=== PATIENT | female | born 1990 | race Caucasian/White ===

== ENCOUNTER 2017-10-09 18:36 | Inpatient (IN) ==
[2017-10-09] MEDS ORDERED: methylPREDNISolone SOD SUC 125 MG/2 ML VIAL IV STA (19:43)
[2017-10-09] MEDS ORDERED: cefTRIAXone 1,000 MG in SODIUM CHLORIDE 0.9% 100 ML IV STA (19:43)
[2017-10-09] MEDS ORDERED: SODIUM CHLORIDE 0.9% 500 ML IV STA (19:43)
[2017-10-09] MEDS ORDERED: ALBUTEROL/IPRATROPIUM 3 ML NEB RESP TX STA (19:43)
[2017-10-09] MEDS ORDERED: methylPREDNISolone SOD SUC 125 MG/2 ML VIAL ONE (20:17)
[2017-10-09] MEDS ORDERED: cefTRIAXone 1,000 MG VIAL ONE (20:17)
[2017-10-09 20:18] LABS: Basophils % 0.1 % (0.0-0.8); Hematocrit 39.4 VOL% (35.7-47.0); Hemoglobin 13.9 GM/DL (12.0-16.0); Immature Granulocytes % 0.5 %; Immature Granulocytes Absolute 0.05 #; Lymphocytes # 0.9 10*3/uL (1.4-4.0); Lymphocytes % 8.8 % (21.3-54.2); Mean Corpuscular HGB Conc 35.3 GM/DL (32-36); Mean Corpuscular Hemoglobin 31 PG (27-34); Mean Corpuscular Volume 86.4 FL (87-102); Mean Platelet Volume 10.8 FL (9.6-12.0); Monocytes # 0.2 10*3/uL (0.11-0.8); Monocytes % 1.8 % (1.7-12.7); Neutrophils # 9.4 10*3/uL (1.4-7.4); Neutrophils % 88.8 % (38.7-73.9); Platelet Count 285 T/CUMM (130-400); Red Blood Count 4.56 MC/CUMM (3.8-5.5); Red Cell Distribution Width 12.5 % (9.3-17.3); White Blood Count 10.5 T/CUMM (4-12)
[2017-10-09 20:50] LABS: Alanine Aminotransferase 27 U/L (13-56); Albumin 4.6 G/DL (3.4-5.0); Alkaline Phosphatase 61 U/L (45-117); Aspartate Amino Transferase 27 U/L (0-37); Blood Urea Nitrogen 11 MG/DL (7-18); Glucose 180 MG/DL (74-106); Osmolality,Calculated 280.5 MOS/KG (273-304); Potassium 3.7 MMOL/L (3.5-5.1); Sodium 139 MMOL/L (136-145); Troponin I Only < 0.015 NG/ML (0.00-0.045)
[2017-10-09 20:55] LABS: ABG Base Excess -4.3 MMOL/L (-2.5-2.5); ABG HCO3 20.9 MMOL/L (20-26); ABG Oxygen Saturation 99.2 % (95-100); ABG PH 7.544 (7.35-7.45); ABG TCO2 14.1 MMOL/L (23-27); Allen Test Positive
[2017-10-09 20:59] LABS: ABG PCO2 18.7 MM HG (35-48)
[2017-10-09 21:54] LABS: Apearance,Urine Slightly Hazy (Clear); Bacteria,Urine Occasional /HPF (Few); Bilirubin,Urine Negative (Negative); Blood, Urine Negative (Negative); Glucose,Urine (UA) >=500 mg/dL (Negative); Ketones,Urine 5 mg/dL (Negative); Mucus,Urine Occasional /LPF (Occasional); Nitrite,Urine Negative (Negative); Protein,Urine Negative; RBC,Urine 1 /HPF (0-4); Squamous Epithelial Cell,Urine Occasional /HPF (0-10); Urine Color Yellow (Yellow); Urine Specific Gravity 1.024 (1.001-1.035); Urine Urobilinogen < 2.0 EU/DL (0.2-1.0); WBC,Urine <1 /HPF (0-6)
[2017-10-09] MEDS ORDERED: ACETAMINOPHEN 325 MG TABLET PO PRN (22:43)
[2017-10-09] MEDS ORDERED: ONDANSETRON 4 MG/2 ML VIAL IV PRN (22:43)
[2017-10-10] MEDS: SERTRALINE 50 MG TABLET PO SCH ×2 (00:09→20:36)
[2017-10-10] MEDS: MONTELUKAST 10 MG TABLET PO SCH ×2 (00:09→20:36)
[2017-10-10] MEDS: ALBUTEROL 2.5 MG/3 ML NEB RESP TX SCH ×5 (00:34→19:52)
[2017-10-10] MEDS ORDERED: methylPREDNISolone SOD SUC 125 MG/2 ML VIAL IV SCH ×2 (04:00→14:00)
[2017-10-10 05:16] LABS: Basophils % 0.1 % (0.0-0.8); Hematocrit 33.5 VOL% (35.7-47.0); Hemoglobin 11.3 GM/DL (12.0-16.0); Immature Granulocytes % 0.9 %; Immature Granulocytes Absolute 0.13 #; Lymphocytes # 0.8 10*3/uL (1.4-4.0); Lymphocytes % 5.4 % (21.3-54.2); Mean Corpuscular HGB Conc 33.7 GM/DL (32-36); Mean Corpuscular Hemoglobin 30 PG (27-34); Mean Corpuscular Volume 89.3 FL (87-102); Mean Platelet Volume 10.8 FL (9.6-12.0); Monocytes # 0.2 10*3/uL (0.11-0.8); Monocytes % 1.5 % (1.7-12.7); Neutrophils % 92.1 % (38.7-73.9); Platelet Count 214 T/CUMM (130-400); Red Blood Count 3.75 MC/CUMM (3.8-5.5); Red Cell Distribution Width 12.5 % (9.3-17.3); White Blood Count 14.1 T/CUMM (4-12)
[2017-10-10 05:37] LABS: Band Neutrophils 1 % (0-10); Giant Platelets Few; Hypochromasia 1+; Lymphocytes 5 % (20-55); Microcytosis Slight; Ovalocytes Slight; Platelet Estimate Adequate; Segmented Neutrophils 94 % (50-85); Total Cells Counted 100
[2017-10-10 05:49] LABS: Osmolality,Calculated 284.1 MOS/KG (273-304)
[2017-10-10] MEDS: BUDESONIDE/FORMOTEROL 160-4.5 INHALER 6 GM INH SCH ×2 (09:53→20:36)
[2017-10-10] MEDS: methylPREDNISolone SOD SUC 40 MG/1 ML VIAL IV SCH ×3 (09:53→21:26)
[2017-10-10] MEDS: PANTOPRAZOLE 40 MG TABLET PO SCH (09:54)
[2017-10-10] MEDS: ZALEPLON 5 MG CAPSULE PO PRN (21:31)
[2017-10-11] MEDS: ALBUTEROL 2.5 MG/3 ML NEB RESP TX SCH ×7 (00:04→23:34)
[2017-10-11] MEDS: methylPREDNISolone SOD SUC 40 MG/1 ML VIAL IV SCH ×5 (04:18→21:21)
[2017-10-11] MEDS: PANTOPRAZOLE 40 MG TABLET PO SCH (08:26)
[2017-10-11] MEDS: BUDESONIDE/FORMOTEROL 160-4.5 INHALER 6 GM INH SCH ×2 (08:29→21:21)
[2017-10-11] MEDS: ALPRAZolam 0.5 MG TABLET PO PRN ×2 (08:30→16:18)
[2017-10-11] MEDS: MONTELUKAST 10 MG TABLET PO SCH (21:21)
[2017-10-11] MEDS: SERTRALINE 50 MG TABLET PO SCH (21:21)
[2017-10-11] MEDS: ZALEPLON 5 MG CAPSULE PO PRN (23:27)
[2017-10-12] MEDS: methylPREDNISolone SOD SUC 40 MG/1 ML VIAL IV SCH ×4 (03:09→21:04)
[2017-10-12] MEDS: ALBUTEROL 2.5 MG/3 ML NEB RESP TX SCH ×6 (03:29→23:15)
[2017-10-12 07:21] LABS: Hematocrit 34.2 VOL% (35.7-47.0); Hemoglobin 11.5 GM/DL (12.0-16.0); Immature Granulocytes % 1.5 %; Lymphocytes # 0.9 10*3/uL (1.4-4.0); Lymphocytes % 4.3 % (21.3-54.2); Mean Corpuscular HGB Conc 33.6 GM/DL (32-36); Mean Corpuscular Hemoglobin 30 PG (27-34); Mean Corpuscular Volume 88.6 FL (87-102); Mean Platelet Volume 11.3 FL (9.6-12.0); Monocytes # 0.5 10*3/uL (0.11-0.8); Monocytes % 2.2 % (1.7-12.7); Platelet Count 248 T/CUMM (130-400); Red Blood Count 3.86 MC/CUMM (3.8-5.5); Red Cell Distribution Width 12.7 % (9.3-17.3); White Blood Count 20.7 T/CUMM (4-12)
[2017-10-12 07:40] LABS: Calcium 8.8 MG/DL (8.5-10.1); Osmolality,Calculated 284.3 MOS/KG (273-304); Potassium 4.4 MMOL/L (3.5-5.1)
[2017-10-12] MEDS: ALPRAZolam 0.5 MG TABLET PO PRN ×2 (08:06→16:30)
[2017-10-12] MEDS: PANTOPRAZOLE 40 MG TABLET PO SCH (08:06)
[2017-10-12] MEDS: BUDESONIDE/FORMOTEROL 160-4.5 INHALER 6 GM INH SCH ×2 (08:07→21:24)
[2017-10-12 08:12] LABS: Giant Platelets Few; Hypochromasia 1+; Lymphocytes 6 % (20-55); Microcytosis Slight; Ovalocytes Slight; Platelet Estimate Adequate; Segmented Neutrophils 93 % (50-85); Total Cells Counted 100
[2017-10-12] MEDS: LEVOFLOXACIN INJ 500 MG in PREMIX 1 EACH IV SCH (09:30)
[2017-10-12] MEDS: THEOPHYLLINE ER (24 HR) 400 MG TABLET PO SCH (09:31)
[2017-10-12] MEDS: MONTELUKAST 10 MG TABLET PO SCH (21:04)
[2017-10-12] MEDS: SERTRALINE 50 MG TABLET PO SCH (21:04)
[2017-10-12] MEDS: ZALEPLON 5 MG CAPSULE PO PRN (23:46)
[2017-10-13] MEDS: ALBUTEROL 2.5 MG/3 ML NEB RESP TX SCH ×6 (02:51→23:15)
[2017-10-13] MEDS: methylPREDNISolone SOD SUC 40 MG/1 ML VIAL IV SCH ×4 (04:50→21:23)
[2017-10-13] MEDS: BUDESONIDE/FORMOTEROL 160-4.5 INHALER 6 GM INH SCH ×2 (09:26→21:22)
[2017-10-13] MEDS: PANTOPRAZOLE 40 MG TABLET PO SCH (09:26)
[2017-10-13] MEDS: THEOPHYLLINE ER (24 HR) 400 MG TABLET PO SCH (09:26)
[2017-10-13] MEDS: LEVOFLOXACIN INJ 500 MG in PREMIX 1 EACH IV SCH (09:29)
[2017-10-13] MEDS: ALPRAZolam 0.5 MG TABLET PO PRN ×2 (09:29→15:26)
[2017-10-13] MEDS: SERTRALINE 50 MG TABLET PO SCH (21:22)
[2017-10-13] MEDS: MONTELUKAST 10 MG TABLET PO SCH (21:22)
[2017-10-13] MEDS: ZALEPLON 5 MG CAPSULE PO PRN (23:08)
[2017-10-14] MEDS: ALBUTEROL 2.5 MG/3 ML NEB RESP TX SCH ×6 (03:40→23:12)
[2017-10-14] MEDS: ALPRAZolam 0.5 MG TABLET PO PRN ×3 (03:59→20:59)
[2017-10-14] MEDS: methylPREDNISolone SOD SUC 40 MG/1 ML VIAL IV SCH ×4 (04:00→21:00)
[2017-10-14 06:04] LABS: Basophils % 0.2 % (0.0-0.8); Hematocrit 37.7 VOL% (35.7-47.0); Hemoglobin 12.9 GM/DL (12.0-16.0); Immature Granulocytes % 2.9 %; Immature Granulocytes Absolute 0.52 #; Lymphocytes # 0.9 10*3/uL (1.4-4.0); Lymphocytes % 5.2 % (21.3-54.2); Mean Corpuscular HGB Conc 34.2 GM/DL (32-36); Mean Corpuscular Hemoglobin 30 PG (27-34); Mean Corpuscular Volume 86.7 FL (87-102); Mean Platelet Volume 11.2 FL (9.6-12.0); Monocytes # 0.8 10*3/uL (0.11-0.8); Monocytes % 4.6 % (1.7-12.7); Neutrophils # 15.5 10*3/uL (1.4-7.4); Neutrophils % 87.1 % (38.7-73.9); Platelet Count 274 T/CUMM (130-400); Red Blood Count 4.35 MC/CUMM (3.8-5.5); Red Cell Distribution Width 12.3 % (9.3-17.3); White Blood Count 17.8 T/CUMM (4-12)
[2017-10-14 06:35] LABS: Band Neutrophils 1 % (0-10); Hypochromasia 1+; Lymphocytes 7 % (20-55); Platelet Estimate Adequate; Segmented Neutrophils 88 % (50-85); Total Cells Counted 100
[2017-10-14] MEDS: BUDESONIDE/FORMOTEROL 160-4.5 INHALER 6 GM INH SCH ×2 (08:33→21:04)
[2017-10-14] MEDS: THEOPHYLLINE ER (24 HR) 400 MG TABLET PO SCH (08:34)
[2017-10-14] MEDS: LEVOFLOXACIN INJ 500 MG in PREMIX 1 EACH IV SCH (08:34)
[2017-10-14] MEDS: PANTOPRAZOLE 40 MG TABLET PO SCH (08:34)
[2017-10-14] MEDS: SERTRALINE 50 MG TABLET PO SCH (20:59)
[2017-10-14] MEDS: MONTELUKAST 10 MG TABLET PO SCH (20:59)
[2017-10-14] MEDS: ZALEPLON 5 MG CAPSULE PO PRN (22:54)
[2017-10-15] MEDS: ALBUTEROL 2.5 MG/3 ML NEB RESP TX SCH ×6 (03:01→23:05)
[2017-10-15] MEDS: methylPREDNISolone SOD SUC 40 MG/1 ML VIAL IV SCH ×3 (03:19→21:39)
[2017-10-15] MEDS: ALPRAZolam 0.5 MG TABLET PO PRN ×3 (08:05→21:39)
[2017-10-15] MEDS: PANTOPRAZOLE 40 MG TABLET PO SCH (08:05)
[2017-10-15] MEDS: THEOPHYLLINE ER (24 HR) 400 MG TABLET PO SCH (08:05)
[2017-10-15] MEDS: LEVOFLOXACIN INJ 500 MG in PREMIX 1 EACH IV SCH ×2 (08:06→09:15)
[2017-10-15] MEDS: BUDESONIDE/FORMOTEROL 160-4.5 INHALER 6 GM INH SCH ×2 (08:06→20:27)
[2017-10-15 09:51] LABS: ABG Base Excess 2.3 MMOL/L (-2.5-2.5); ABG HCO3 24.2 MMOL/L (20-26); ABG Oxygen Saturation 98.7 % (95-100); ABG PCO2 29.5 MM HG (35-48); ABG PH 7.531 (7.35-7.45); ABG PO2 142.6 MM HG (80-95); ABG TCO2 25.1 MMOL/L (23-27)
[2017-10-15] MEDS: MONTELUKAST 10 MG TABLET PO SCH (20:27)
[2017-10-15] MEDS: SERTRALINE 50 MG TABLET PO SCH (20:27)
[2017-10-15] MEDS: ZALEPLON 5 MG CAPSULE PO PRN (21:39)
[2017-10-16] MEDS: ALBUTEROL 2.5 MG/3 ML NEB RESP TX SCH ×6 (03:12→22:47)
[2017-10-16] MEDS: ALPRAZolam 0.5 MG TABLET PO PRN (08:59)
[2017-10-16] MEDS: PANTOPRAZOLE 40 MG TABLET PO SCH (09:00)
[2017-10-16] MEDS: THEOPHYLLINE ER (24 HR) 400 MG TABLET PO SCH (09:00)
[2017-10-16] MEDS: methylPREDNISolone SOD SUC 40 MG/1 ML VIAL IV SCH (09:01)
[2017-10-16] MEDS: LEVOFLOXACIN INJ 500 MG in PREMIX 1 EACH IV SCH (09:02)
[2017-10-16] MEDS: BUDESONIDE/FORMOTEROL 160-4.5 INHALER 6 GM INH SCH ×2 (09:18→21:31)
[2017-10-16] MEDS: SERTRALINE 50 MG TABLET PO SCH (21:31)
[2017-10-16] MEDS: MONTELUKAST 10 MG TABLET PO SCH (21:31)
[2017-10-16] MEDS: ZALEPLON 5 MG CAPSULE PO PRN (23:22)
[2017-10-17] MEDS: ALBUTEROL 2.5 MG/3 ML NEB RESP TX SCH ×4 (02:44→14:40)
[2017-10-17 05:58] LABS: Basophils % 0.2 % (0.0-0.8); Eosinophils # 0.1 10*3/uL (0.0-0.87); Eosinophils % 0.7 % (0.00-10.9); Hematocrit 40.3 VOL% (35.7-47.0); Hemoglobin 13.5 GM/DL (12.0-16.0); Immature Granulocytes % 4.2 %; Immature Granulocytes Absolute 0.54 #; Lymphocytes # 3.4 10*3/uL (1.4-4.0); Lymphocytes % 26.8 % (21.3-54.2); Mean Corpuscular HGB Conc 33.5 GM/DL (32-36); Mean Corpuscular Hemoglobin 30 PG (27-34); Mean Platelet Volume 10.8 FL (9.6-12.0); Monocytes # 1.4 10*3/uL (0.11-0.8); Monocytes % 11.2 % (1.7-12.7); Neutrophils # 7.3 10*3/uL (1.4-7.4); Neutrophils % 56.9 % (38.7-73.9); Platelet Count 221 T/CUMM (130-400); Red Blood Count 4.58 MC/CUMM (3.8-5.5); Red Cell Distribution Width 12.6 % (9.3-17.3); White Blood Count 12.9 T/CUMM (4-12)
[2017-10-17 06:30] LABS: Albumin 3.5 G/DL (3.4-5.0); Bilirubin,Total 0.6 MG/DL (0.2-1.0); Calcium 8.4 MG/DL (8.5-10.1); Eosinophils 1 % (0-10); Lymphocytes 32 % (20-55); Metamyelocytes 1 %; Osmolality,Calculated 275.8 MOS/KG (273-304); Segmented Neutrophils 58 % (50-85); Total Cells Counted 100; Total Protein 6.1 G/DL (6.4-8.3)
[2017-10-17 06:31] LABS: Hypochromasia 1+; Microcytosis 1+; Platelet Estimate Normal
[2017-10-17] MEDS ORDERED: predniSONE 20 MG TABLET PO SCH (09:00)
[2017-10-17] MEDS: BUDESONIDE/FORMOTEROL 160-4.5 INHALER 6 GM INH SCH (09:42)
[2017-10-17] MEDS: PANTOPRAZOLE 40 MG TABLET PO SCH (09:42)
[2017-10-17] MEDS: LEVOFLOXACIN INJ 500 MG in PREMIX 1 EACH IV SCH (09:42)
[2017-10-17] MEDS ORDERED: diphenhydrAMINE 50 MG/1 ML VIAL IV ONE (11:06)
[2017-10-17] MEDS: ALPRAZolam 0.5 MG TABLET PO PRN (11:12)
[2017-10-17 12:39] VITALS: BP 103/61
== END 2017-10-17 16:12 | disposition home or self-care (01) | DRG 203 ==
LOC: N.EDINP 18:36 → N.ED 18:36 → N.5E 23:22 → SUATTDRO 10-10 11:06
PROVIDERS: ATTEND Internal Medicine

== ENCOUNTER 2021-11-18 16:23 | Inpatient (IN) ==
[2021-11-17] MEDS: LACTATED RINGERS 1,000 ML IV SCH ×2 (14:50→20:15)
[2021-11-17] MEDS: ACETAMINOPHEN 325 MG TABLET PO PRN (18:15)
[2021-11-17] MEDS: SUMAtriptan 25 MG TABLET PO PRN ×3 (21:06→23:46)
[2021-11-18] MEDS: ONDANSETRON 4 MG/2 ML VIAL IV PRN ×5 (01:01→23:30)
[2021-11-18] MEDS: LACTATED RINGERS 1,000 ML IV SCH ×4 (02:22→22:36)
[2021-11-18] MEDS: ACETAMINOPHEN 325 MG TABLET PO PRN ×3 (03:55→16:12)
[2021-11-18] MEDS: SUMAtriptan 25 MG TABLET PO PRN ×3 (07:32→21:36)
[~2021-11-18 16:23] MED LIST: MEPERIDINE 50 MG/1 ML VIAL IM ONE; ONDANSETRON 4 MG/2 ML VIAL IV ONE; PROMETHAZINE 25 MG/1 ML VIAL IM ONE
[2021-11-19] MEDS: LACTATED RINGERS 1,000 ML IV SCH ×3 (04:46→17:49)
[2021-11-19] MEDS: ACETAMINOPHEN 325 MG TABLET PO PRN (06:09)
[2021-11-19] MEDS: ONDANSETRON 4 MG/2 ML VIAL IV PRN (06:09)
[2021-11-19 08:46] LABS: Bacteria,Urine Occasional /HPF (Few); RBC,Urine <1 /HPF (0-4); Squamous Epithelial Cell,Urine Occasional /HPF (0-10)
[2021-11-19 08:47] LABS: Bilirubin,Urine Negative (Negative); Blood, Urine Negative (Negative); Glucose,Urine (UA) Negative (Negative); Ketones,Urine Negative (Negative); Nitrite,Urine Negative (Negative); Protein,Urine Negative (Negative); Urine Appearance Clear (Clear); Urine Color Yellow (Yellow); Urine Urobilinogen 0.2 eU/dL (<2.0)
[2021-11-19 08:49] LABS: Basophils % 0.3 % (0.0-0.8); Eosinophils # 0.1 10*3/uL (0.0-0.87); Eosinophils % 1.7 % (0.00-10.9); Hematocrit 32.3 VOL% (35.7-47.0); Hemoglobin 10.8 GM/DL (12.0-16.0); Immature Granulocytes % 0.5 %; Immature Granulocytes Absolute 0.03 #; Lymphocytes # 1.2 10*3/uL (1.4-4.0); Lymphocytes % 19.7 % (21.3-54.2); Mean Corpuscular HGB Conc 33.4 GM/DL (32-36); Mean Corpuscular Volume 88.7 FL (87-102); Mean Platelet Volume 10.1 FL (9.6-12.0); Monocytes % 4.6 % (1.7-12.7); Neutrophils % 73.2 % (38.7-73.9); Platelet Count 149 T/CUMM (130-400); Red Blood Count 3.64 MC/CUMM (3.8-5.5); Red Cell Distribution Width 12.2 % (9.3-17.3)
[2021-11-19] MEDS: PANTOPRAZOLE 40 MG VIAL IV SCH (08:59)
[2021-11-19 09:04] LABS: Albumin 2.8 G/DL (3.4-5.0); Bilirubin,Total 0.4 MG/DL (0.20-1.00); Calcium 8.9 MG/DL (8.5-10.1); Osmolality,Calculated 275.4 MOS/KG (273-304); Potassium 3.7 MMOL/L (3.5-5.1); Total Protein 5.9 G/DL (6.4-8.2)
[2021-11-19] MEDS ORDERED: MEPERIDINE 50 MG/1 ML VIAL IV PRN (09:05)
[2021-11-19] MEDS ORDERED: PROMETHAZINE 25 MG/1 ML VIAL IM PRN (09:06)
[2021-11-19] MEDS: SUMAtriptan 25 MG TABLET PO PRN (13:17)
[2021-11-19] MEDS ORDERED: BUTALBITAL/ACETAMIN/CAFFEINE 50-325-40 MG TABLET PO ONE (15:31)
[2021-11-19] MEDS ORDERED: methylPREDNISolone SOD SUC 40 MG/1 ML VIAL IV ONE (15:42)
[2021-11-19] MEDS ORDERED: KETOROLAC 30 MG/1 ML VIAL IM PRN (15:46)
[2021-11-20] MEDS: LACTATED RINGERS 1,000 ML IV SCH ×3 (01:42→20:22)
[2021-11-20] MEDS: BUTALBITAL/ACETAMIN/CAFFEINE 50-325-40 MG TABLET PO PRN (05:19)
[2021-11-20 05:29] LABS: Alanine Aminotransferase 41 U/L (13-56); Albumin 2.5 G/DL (3.4-5.0); Alkaline Phosphatase 45 U/L (45-117); Aspartate Amino Transferase 35 U/L (0-37); Bilirubin,Total < 0.39 MG/DL (0.20-1.00); Blood Urea Nitrogen 6 MG/DL (7-18); Calcium 8.2 MG/DL (8.5-10.1); Carbon Dioxide 23 MMOL/L (21-32); Estimated Glom Filtration Rate 123 ML/MIN; Glucose 100 MG/DL (74-106); Osmolality,Calculated 276.4 MOS/KG (273-304); Potassium 4.2 MMOL/L (3.5-5.1); Sodium 140 MMOL/L (136-145); Thyroid Stimulating Hormone 0.499 uIU/ml (0.358-3.74); Total Protein 5.6 G/DL (6.4-8.2)
[2021-11-20] MEDS: PANTOPRAZOLE 40 MG VIAL IV SCH (08:08)
[2021-11-20] MEDS: DOCUSATE SODIUM 100 MG CAPSULE PO PRN (08:11)
[2021-11-20] MEDS: ACETAMINOPHEN 325 MG TABLET PO PRN (13:53)
[2021-11-20] MEDS ORDERED: MAGNESIUM SULF RIDER 2 GM/50 ML PREMIX IV PRN (14:39)
[2021-11-20] MEDS: predniSONE 10 MG TABLET PO SCH (14:54)
[2021-11-20] MEDS: KETOROLAC 30 MG/1 ML VIAL IV PRN (18:12)
[2021-11-21] MEDS ORDERED: ALUMINUM/MAGNES/SIMETH MAX STR 30 ML UDCUP PO PRN (02:59)
[2021-11-21] MEDS: PANTOPRAZOLE 40 MG VIAL IV SCH (08:04)
[2021-11-21] MEDS: predniSONE 10 MG TABLET PO SCH (08:07)
[2021-11-21] MEDS: DOCUSATE SODIUM 100 MG CAPSULE PO PRN (08:07)
[2021-11-21] MEDS: LACTATED RINGERS 1,000 ML IV SCH (11:53)
[2021-11-21] MEDS: ONDANSETRON 4 MG/2 ML VIAL IV PRN (15:34)
[2021-11-21] MEDS: KETOROLAC 30 MG/1 ML VIAL IV PRN (17:35)
[2021-11-21] MEDS: BUTALBITAL/ACETAMIN/CAFFEINE 50-325-40 MG TABLET PO PRN (23:10)
[2021-11-22] MEDS: ONDANSETRON 4 MG/2 ML VIAL IV PRN (06:59)
[2021-11-22 08:43] VITALS: BP 92/62
[2021-11-22] MEDS: predniSONE 10 MG TABLET PO SCH (09:27)
[2021-11-22] MEDS: PANTOPRAZOLE 40 MG VIAL IV SCH (09:38)
[2021-11-22] MEDS: ACETAMINOPHEN 325 MG TABLET PO PRN (09:39)
== END 2021-11-22 10:55 | disposition home or self-care (01) | DRG 833 ==
LOC: N.OB
PROVIDERS: ADMIT Obstetrics & Gynecology; ATTEND Obstetrics & Gynecology

== ENCOUNTER 2022-05-13 06:00 | Inpatient (IN) ==
[2022-05-13] MEDS: LACTATED RINGERS 1,000 ML IV SCH ×4 (06:35→23:15)
[2022-05-13] MEDS ORDERED: MEPERIDINE 50 MG/1 ML VIAL IV PRN (06:43)
[2022-05-13] MEDS ORDERED: METHYLERGONOVINE 0.2 MG/1 ML AMP IM PRN (06:43)
[2022-05-13] MEDS ORDERED: CARBOPROST TROMETHAMINE 250 MCG/ML AMP IM PRN (06:43)
[2022-05-13] MEDS ORDERED: TRANEXAMIC ACID 1,000 MG in SODIUM CHLORIDE 0.9% 100 ML IV PRN (06:43)
[2022-05-13] MEDS ORDERED: BUTORPHANOL 2 MG/ML VIAL IV PRN (06:43)
[2022-05-13] MEDS ORDERED: ONDANSETRON 4 MG/2 ML VIAL IV PRN (06:43)
[2022-05-13] MEDS ORDERED: OXYTOCIN/LR 20 UNIT/1,000 ML BAG IV ONE (06:43)
[2022-05-13] MEDS ORDERED: miSOPROStoL 200 MCG TABLET RECTAL PRN (06:43)
[2022-05-13] MEDS ORDERED: OXYTOCIN/LR 20 UNIT/1,000 ML BAG IV SCH (07:00)
[2022-05-13 07:07] LABS: Basophils % 0.3 % (0.0-0.8); Eosinophils # 0.1 10*3/uL (0.0-0.87); Eosinophils % 1.5 % (0.00-10.9); Hematocrit 35.4 VOL% (35.7-47.0); Hemoglobin 11.7 GM/DL (12.0-16.0); Immature Granulocytes % 0.6 %; Immature Granulocytes Absolute 0.05 #; Lymphocytes # 2.2 10*3/uL (1.4-4.0); Lymphocytes % 27.4 % (21.3-54.2); Mean Corpuscular HGB Conc 33.1 GM/DL (32-36); Mean Corpuscular Volume 88.5 FL (87-102); Mean Platelet Volume 12.2 FL (9.6-12.0); Monocytes # 0.6 10*3/uL (0.11-0.8); Monocytes % 7.3 % (1.7-12.7); Neutrophils % 62.9 % (38.7-73.9); Platelet Count 122 T/CUMM (130-400); Red Cell Distribution Width 13.2 % (9.3-17.3); White Blood Count 7.8 T/CUMM (4-12)
[2022-05-13 07:37] LABS: Albumin 2.4 G/DL (3.4-5.0); Bilirubin,Total 0.4 MG/DL (0.20-1.00); Calcium 8.3 MG/DL (8.5-10.1); Osmolality,Calculated 279.1 MOS/KG (273-304); Potassium 3.9 MMOL/L (3.5-5.1); Total Protein 6.2 G/DL (6.4-8.2)
[2022-05-13] MEDS ORDERED: FAMOTIDINE 20 MG/2 ML VIAL IV ONE ×3 (08:14→20:55)
[2022-05-13] MEDS ORDERED: LACTATED RINGERS 1,000 ML IV ONE (08:14)
[2022-05-13] MEDS ORDERED: NALOXONE 0.4 MG/ML VIAL IV PRN (08:14)
[2022-05-13] MEDS ORDERED: diphenhydrAMINE 50 MG/1 ML VIAL IV PRN ×2 (08:14)
[2022-05-13] MEDS ORDERED: CITRIC ACID/SODIUM CITRATE 30 ML UDCUP PO ONE (08:14)
[2022-05-13] MEDS ORDERED: ALUMINUM/MAGNES/SIMETH MAX STR 30 ML UDCUP PO PRN (08:28)
[2022-05-13] MEDS ORDERED: fentaNYL 2 MCG/ROPIV 0.2% EPID 100 ML EPIDURAL SCH (08:30)
[2022-05-13] MEDS ORDERED: TERBUTALINE 1 MG/1 ML VIAL ONE (17:27)
[2022-05-13] MEDS ORDERED: TERBUTALINE 1 MG/1 ML VIAL SUBCUT ONE ×2 (17:36→20:30)
[2022-05-13] MEDS ORDERED: CITRIC ACID/SODIUM CITRATE 30 ML UDCUP ONE (20:55)
[2022-05-13] MEDS: ePHEDrine 50 MG/ML VIAL IV PRN ×2 (21:30→21:42)
[2022-05-13 22:17] LABS: Bilirubin,Urine Negative (Negative); Glucose,Urine (UA) Negative (Negative); Ketones,Urine 15 mg/dL (Negative); Nitrite,Urine Negative (Negative); Protein,Urine Negative (Negative); Urine Appearance Clear (Clear); Urine Color Yellow (Yellow)
[2022-05-13 22:18] LABS: Blood, Urine Negative (Negative)
[2022-05-13 22:22] LABS: RBC,Urine <1 /HPF (0-4); Squamous Epithelial Cell,Urine Occasional /HPF (0-10)
[2022-05-13] MEDS ORDERED: TERBUTALINE 1 MG/1 ML VIAL SUBCUT PRN (22:30)
[2022-05-14 00:43] LABS: Cord Arterial Blood HCO3 18.1 MMOL/L
[2022-05-14 00:48] LABS: Cord Venous Blood PCO2 45.5 MMHG; Cord Venous Blood PO2 25.7
[2022-05-14] MEDS ORDERED: LANOLIN 50% CREAM 0.3 OZ TUBE TOP PRN (02:49)
[2022-05-14] MEDS ORDERED: HYDROCORTISONE 2.5% RECTAL CREAM 30 GM TUBE TOP PRN (02:49)
[2022-05-14] MEDS ORDERED: MEASLES/MUMPS/RUBELLA VACCINE 0.5 ML VIAL SUBCUT ONE (02:49)
[2022-05-14] MEDS ORDERED: BISACODYL 10 MG SUPP RECTAL PRN (02:49)
[2022-05-14] MEDS ORDERED: OXYTOCIN/LR 20 UNIT/1,000 ML BAG IV ONE (02:49)
[2022-05-14] MEDS ORDERED: RHO(D) IMMUNE GLOBULIN 300 MCG SYRINGE IM ONE (02:49)
[2022-05-14] MEDS ORDERED: ACETAMINOPHEN 325 MG TABLET PO PRN (02:49)
[2022-05-14] MEDS ORDERED: ONDANSETRON 4 MG/2 ML VIAL IV PRN (02:49)
[2022-05-14] MEDS ORDERED: DIPH/TET/ACEL PERT BOOSTER VACCINE 0.5 ML VIAL IM ONE (02:49)
[2022-05-14] MEDS: IBUPROFEN 800 MG TABLET PO PRN ×2 (03:19→20:07)
[2022-05-14] MEDS: WITCH HAZEL PADS 100/JAR TOP PRN ×2 (03:20→21:23)
[2022-05-14] MEDS: BENZOCAINE 20%/MENTHOL 0.5% SPRAY 56 GM CAN TOP PRN ×2 (03:20→21:23)
[2022-05-14] MEDS ORDERED: HydrOXYzine PAMOATE 25 MG CAPSULE PO PRN (03:33)
[2022-05-14] MEDS: oxyCODONE/ACETAMINOPHEN 5-325 MG TABLET PO PRN ×3 (04:30→21:22)
[2022-05-14 05:49] LABS: Basophils % 0.2 % (0.0-0.8); Eosinophils % 0.3 % (0.00-10.9); Hematocrit 28.1 VOL% (35.7-47.0); Immature Granulocytes % 0.7 %; Immature Granulocytes Absolute 0.09 #; Lymphocytes # 1.7 10*3/uL (1.4-4.0); Lymphocytes % 12.2 % (21.3-54.2); Mean Corpuscular Volume 90.4 FL (87-102); Mean Platelet Volume 12.1 FL (9.6-12.0); Monocytes # 0.8 10*3/uL (0.11-0.8); Monocytes % 6.1 % (1.7-12.7); Neutrophils % 80.5 % (38.7-73.9); Red Blood Count 3.11 MC/CUMM (3.8-5.5); Red Cell Distribution Width 13.2 % (9.3-17.3); White Blood Count 13.7 T/CUMM (4-12)
[2022-05-14 05:56] LABS: Platelet Count 107 T/CUMM (130-400)
[2022-05-14] MEDS: FERROUS SULFATE 325 MG TABLET PO SCH ×2 (09:22→20:07)
[2022-05-14] MEDS: DOCUSATE SODIUM 100 MG CAPSULE PO SCH ×2 (09:22→20:07)
[2022-05-15] MEDS: IBUPROFEN 800 MG TABLET PO PRN ×2 (08:05→18:14)
[2022-05-15] MEDS: FERROUS SULFATE 325 MG TABLET PO SCH ×2 (09:01→21:06)
[2022-05-15] MEDS: DOCUSATE SODIUM 100 MG CAPSULE PO SCH ×2 (09:01→21:06)
[2022-05-15] MEDS ORDERED: FUROSEMIDE 20 MG TABLET PO ONE (22:14)
[2022-05-15] MEDS: METOCLOPRAMIDE 10 MG TABLET PO SCH (22:47)
[2022-05-16] MEDS: IBUPROFEN 800 MG TABLET PO PRN (06:04)
[2022-05-16 08:58] VITALS: BP 101/54
[2022-05-16] MEDS: FERROUS SULFATE 325 MG TABLET PO SCH (09:22)
[2022-05-16] MEDS: METOCLOPRAMIDE 10 MG TABLET PO SCH (09:22)
[2022-05-16] MEDS: DOCUSATE SODIUM 100 MG CAPSULE PO SCH (09:22)
[2022-05-16] MEDS: oxyCODONE/ACETAMINOPHEN 5-325 MG TABLET PO PRN (09:26)
[2022-05-16] MEDS: WITCH HAZEL PADS 100/JAR TOP PRN (13:05)
[2022-05-16] MEDS: BENZOCAINE 20%/MENTHOL 0.5% SPRAY 56 GM CAN TOP PRN (13:05)
== END 2022-05-16 13:05 | disposition home or self-care (01) | DRG 807 ==
LOC: N.LD 06:00 → N.OB 05-14 02:30
PROVIDERS: ADMIT Obstetrics & Gynecology; ATTEND Obstetrics & Gynecology